=== PATIENT | male | born 1945 | race Caucasian/White ===

== ENCOUNTER 2021-03-06 14:27 | Emergency (ER) | payer MEDICARE, MEDICAID ==
[~2021-03-06] VITALS: Ht 165.1 cm; Wt 66.0 kg
[2021-03-06 14:38] VITALS: BP 139/76
[2021-03-06] MEDS ORDERED: BACITRACIN ZINC OINT UDPKT TOP ONE (17:45)
[2021-03-06] MEDS ORDERED: LIDOCAINE HCL/EPINEPHRINE 1%-EPI 1:100,000 20 ML VIAL INFIL ONE (17:45)
[2021-03-06] MEDS ORDERED: TETANUS, DIPHTHERIA, PERTUSSIS VAC/PF 0.5ML (>10YR OLD) IM ONE (17:45)
[2021-03-06] MEDS ORDERED: CEPH500C2 MT (18:17)
== END 2021-03-06 18:35 | disposition home or self-care (01) ==
LOC: ER 14:27
DX: S81.811A Laceration without foreign body, right lower leg, initial encounter (principal); W01.0XXA Fall on same level from slipping, tripping and stumbling without subsequent striking against object, initial encounter; Y93.89 Activity, other specified; Y92.89 Other specified places as the place of occurrence of the external cause; Y99.8 Other external cause status
CPT/HCPCS: 12002; 90471; 90715; 99283; J3490

== ENCOUNTER 2021-03-20 10:29 | Emergency (ER) | payer MEDICARE, MEDICAID ==
[~2021-03-20] VITALS: Ht 165.1 cm; Wt 67.0 kg
[~2021-03-20 10:29] MED LIST: CEPH500C2 MT
[2021-03-20 10:41] VITALS: BP 145/72
== END 2021-03-20 11:46 | disposition home or self-care (01) ==
LOC: ER 10:29
DX: Z48.02 Encounter for removal of sutures (principal); I10 Essential (primary) hypertension; Z85.9 Personal history of malignant neoplasm, unspecified; Z98.890 Other specified postprocedural states
CPT/HCPCS: 99281